=== PATIENT | male | born 1940 | race Caucasian/White ===

== ENCOUNTER → 2018-03-20 | Outpatient (CLI) | payer OTHER | LOC: FIMAGING 12:21 | PROVIDERS: ATTEND Orthopaedic Surgery | DX: Z01.818 Encounter for other preprocedural examination (principal); M16.12 Unilateral primary osteoarthritis, left hip ==

== ENCOUNTER 2018-04-01 07:52 | Inpatient (IN) | payer OTHER ==
--- NOTE | 2018-04-01 06:33 | PDIAF ---
- Diagnosis Diagnosis: left hip djd Code Status: Full Code - Medication Management Discharge Medications: Medications to Continue on Transfer Acetaminophen [Tylenol 325mg (*)] 325 mg PO Q6HRS PRN 03/19/18 [Last Taken Unknown] Calcium Carbonate [Oyster Shell Calcium 500 mg (*)] 500 mg PO DAILY 03/19/18 [ Last Taken Unknown] Ferrous Sulfate [Ferrous Sulf 325 MG (*)] 325 mg PO DAILY 03/19/18 [Last Taken Unknown] Ibuprofen [Motrin (*)] 200 mg PO DAILY 03/19/18 [Last Taken Unknown] Multivitamins [Multivitamin (*)] 1 each PO DAILY 03/19/18 [Last Taken Unknown] Omeprazole 20 mg PO DAILY18 03/19/18 [Last Taken Unknown] Discharge Medications: Refer to the Discharge Home Medication list for PRN reason. - Orders Services needed: Physical Therapy Diet Recommendation: no restrictions on diet Diet Texture: Regular Texture Diet Additional Instructions: TOTAL JOINT ARTHROPLASTY DISCHARGE INSTRUCTIONS 1. Your surgeon follows the [facility] protocol for reducing your risk of DVT (blood clots) following surgery. Medication will be ordered to prevent blood clots. A sudden increase in calf pain and/or swelling could indicate a blood clot in your leg. If this occurs, please call your surgeon or his/her assistant professor of criminal justice. An ultrasound of the leg may be necessary to diagnose a blood clot. If you have conditions that make you a higher risk for blood clots, your surgeon may use more aggressive ways to prevent them. Notify your surgeon if you think you are a high risk for blood clots. 2. Wear your white surgical stockings (NEEL hose) for 2 weeks. This decreases your swelling and may help prevent blood clots. It is ok to remove NEEL hose at night time to give your legs a break. 3. Swelling and bruising in the surgical leg is common. If you feel that it is excessive, please notify your surgeon. 4. Elevate your surgical leg with the ankle above the hip several times every day. Please keep the leg straight when you elevate by putting pillows under your foot. Do not put pillows under your knee. This will make being able to fully straighten more difficult. This is uncomfortable, but try to do it as much as possible. 5. For total knee replacements use compressive wrap on your knee for 3-5 days after surgery, then you can discontinue it. 6. Use a walker or crutches for 1-2 weeks. Progress your weight-bearing as tolerated. You may start to use a cane when you feel stable and safe. 7. You will receive physical therapy instructions in the hospital. Continue those exercises at home. There are additional exercises in the total joint booklet you were given before surgery. Outpatient physical therapy will begin 7- 10 days after surgery. Please schedule this in advance. 8. Use ice on your knee at least 3-5 times every day for 30 minutes. This helps reduce pain and swelling. Also use it at night before falling asleep. 9. Leave your surgical dressing in place for 2 weeks. Your dressing is water resistant, but not waterproof. Cover it with Saran Wrap or Sbsjz-i-Lamh before showering. You may shower as soon as you feel safe entering a shower. If you notice bleeding from your incision 2 or 3 days after surgery, please notify your surgeon. 10. Due to narcotics, decreased activity and altered diet, most patients experience constipation after surgery. Use jthn-xwe-[id number] stool softeners while you are on narcotics. 11. You may drive a car when you are comfortable bearing weight, have good muscular control of your leg and are off narcotics. This usually occurs 2-4 weeks after surgery, depending on which leg was operated on. 12. If there are questions not addressed here, please refer the [facility] book given for more information. If you still have questions, please contact your surgeon s office. 13. If you have a life-threatening emergency, please call 911 and go to the emergency room immediately. For non-life threatening emergencies, please call your physicians office for advice before going to the emergency room. - Follow Up Care Current Providers and Referrals: Solomon Ryan MD [Medical Doctor] - MEGAN QUINONEZ [Primary Care Provider] -
--- NOTE | 2018-04-01 06:33 | PDHPUP ---
History & Physical Update H&P update statement: This history and physical update is based on an assessment of the patient which was completed after admission or registration (within 24 hours), but prior to the surgery/procedure. H&P update: no change in patient's condition since H&P completed
[~2018-04-01 07:52] MED LIST: ROPIVACAINE 0.2% 80 MG, EPINEPHrine 0.2 MG, KETOROLAC TROMETHAMINE 30 MG, morphINE 10 M... IU ONE; TRANEXAMIC ACID 1,000 MG in NS 100 ML IV ONE
[2018-04-01] MEDS ORDERED: ceFAZolin 2 GM/DEXTROSE 100 ML IV ONE (08:04)
[2018-04-01] MEDS ORDERED: ACETAMINOPHEN 325 MG TAB PO ONE (08:04)
[2018-04-01] MEDS ORDERED: FAMOTIDINE 20 MG TAB PO ONE (08:04)
[2018-04-01] MEDS ORDERED: LR 1,000 ML IV ONE (08:05)
[2018-04-01] MEDS ORDERED: ceFAZolin 1 GM/5 ML SYR ONE (08:41)
[2018-04-01] MEDS ORDERED: MIDAZOLAM 2 MG/2 ML VIAL IVP ONE (09:28)
--- NOTE | 2018-04-01 09:29 | PDANEPAE ---
ANE History of Present Illness left hip pain, left total hip arthroplasty ANE Past Medical History - Cardiovascular History Hx Hypertension: No Hx Arrhythmias: No Hx Chest Pain: No Hx Coronary Artery / Peripheral Vascular Disease: No Hx CHF / Valvular Disease: No Hx Palpitations: No - Pulmonary History Hx COPD: No Hx Asthma/Reactive Airway Disease: No Hx Recent Upper Respiratory Infection: No Hx Oxygen in Use at Home: No Hx Sleep Apnea: No Sleep Apnea Screening Result - Last Documented: Negative - Neurologic History Hx Cerebrovascular Accident: No Hx Seizures: No Hx Dementia: No - Endocrine History Hx Diabetes: No - Renal History Hx Renal Disorders: No - Liver History Hx Hepatic Disorders: No - Neurological & Psychiatric Hx Hx Neurological and Psychiatric Disorders: No - Cancer History Hx Cancer: No - Congenital Disorder History 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 GERD - Other Health History Other Health History: osteoarthritis. mild low back pain, muscular - Chronic Pain History Chronic Pain: Yes (left hip in the last year) - Surgical History Prior Surgeries: hernia repair, age 12 ANE Review of Systems Review of Systems: - Exercise capacity METS (RN): 5 METS ANE Patient History - Allergies Allergies/Adverse Reactions: No Known Allergies Allergy (Verified 03/19/18 10:26) - Home Medications Home Medications: Acetaminophen [Tylenol 325mg (*)] 325 mg PO Q6HRS PRN 03/19/18 [Last Taken 03/31 22:00] Calcium Carbonate [Oyster Shell Calcium 500 mg (*)] 500 mg PO DAILY 03/19/18 [ Last Taken 03/25/18] Ferrous Sulfate [Ferrous Sulf 325 MG (*)] 325 mg PO DAILY 03/19/18 [Last Taken 04/01/18] Ibuprofen [Motrin (*)] 200 mg PO DAILY 03/19/18 [Last Taken 03/25/18] Multivitamins [Multivitamin (*)] 1 each PO DAILY 03/19/18 [Last Taken 03/25/18] Omeprazole 20 mg PO DAILY18 03/19/18 [Last Taken 03/31/18 18:30] - NPO status NPO Since - Liquids (Date): 04/01/18 NPO Since - Liquids (Time): 06:30 NPO Since - Solids (Date): 03/31/18 NPO Since - Solids (Time): 22:00 - Smoking Hx Smoking Status: Former smoker - Family Anes Hx Family Hx Anesthesia Complications: none ANE Labs/Vital Signs - Vital Signs Blood Pressure: 146/78 Heart Rate: 62 Respiratory Rate: 16 O2 Sat (%): 97 Height: 177.8 cm Weight: 61.235 kg ANE Physical Exam - Airway Neck exam: FROM Mallampati Score: Class 1 Mouth exam: normal dental/mouth exam - Pulmonary Pulmonary: no respiratory distress - Cardiovascular Cardiovascular: regular rate and rhythym - ASA Status ASA Status: II ANE Anesthesia Plan Anesthesia Plan: GA w LMA, spinal
[2018-04-01] MEDS ORDERED: fentaNYL 100 MCG/2 ML INJ ONE ×3 (09:34→11:32)
[2018-04-01] MEDS ORDERED: PHENYLEPHRINE HCL 100 MCG/ML SYR ONE (09:34)
[2018-04-01] MEDS ORDERED: LIDOCAINE 2% 100 MG/5 ML SYR ONE (09:34)
[2018-04-01] MEDS ORDERED: BUPIVACAINE/DEXTROSE 7.5MG/ML 2 ML SPINAL AMP SP ONE (09:34)
[2018-04-01] MEDS ORDERED: PROPOFOL 200 MG/20 ML VIAL ONE (09:35)
[2018-04-01] MEDS ORDERED: PROPOFOL/EMULSION 500 MG/50 ML BOTTLE IV ONE (09:38)
[2018-04-01] MEDS ORDERED: HYDROmorphONE/DILAUDID 2 MG/ML INJ IVP PRN (10:30)
[2018-04-01] MEDS ORDERED: LR 500 ML IV PRN (10:30)
[2018-04-01] MEDS ORDERED: MEPERIDINE 25 MG/0.5 ML AMP IVP PRN (10:30)
[2018-04-01] MEDS ORDERED: ONDANSETRON 4 MG/2 ML VIAL IVP PRN ×2 (10:30→11:00)
[2018-04-01] MEDS ORDERED: ACETAMINOPHEN 500 MG TAB PO PRN (10:30)
[2018-04-01] MEDS ORDERED: oxyCODONE IR 5 MG TAB PO PRN ×2 (10:30→11:00)
[2018-04-01] MEDS ORDERED: PROMETHAZINE HCL 25 MG/ML INJ IVP PRN ×2 (10:30→11:00)
[2018-04-01] MEDS ORDERED: NALOXONE HCL 0.4 MG/ML INJ IVP PRN (10:30)
[2018-04-01] MEDS ORDERED: LACTULOSE 20 GM/30 ML UDCUP PO PRN (11:00)
[2018-04-01] MEDS ORDERED: POLYETHYLENE GLYCOL 3350 17 GM PKT PO PRN (11:00)
[2018-04-01] MEDS ORDERED: LR 1,000 ML IV SCH (11:00)
[2018-04-01] MEDS ORDERED: ONDANSETRON DISINTEGRATING 4 MG TAB PO PRN (11:00)
[2018-04-01] MEDS ORDERED: diphenhydrAMINE 25 MG CAP PO PRN (11:00)
[2018-04-01] MEDS ORDERED: METOCLOPRAMIDE 10 MG/2 ML VIAL IVP PRN (11:00)
[2018-04-01] MEDS ORDERED: PROMETHAZINE HCL 25 MG SUPPR PR PRN (11:00)
[2018-04-01] MEDS ORDERED: MAGNESIUM HYDROXIDE 30 ML UDCUP PO PRN (11:00)
[2018-04-01] MEDS ORDERED: BISACODYL 10 MG SUPP PR PRN (11:00)
[2018-04-01] MEDS ORDERED: TEMAZEPAM 15 MG CAP PO PRN (11:00)
[2018-04-01] MEDS ORDERED: DIPHENOXYLATE/ATROPINE LOMOTIL 1 TAB PO PRN (11:00)
[2018-04-01] MEDS ORDERED: CYCLOBENZAPRINE 10 MG TAB PO PRN (11:00)
--- NOTE | 2018-04-01 11:00 | POSTOPPROG ---
Post Op Note Date of Operation: 04/01/18 Surgeon: Solomon Ryan [employer] Apprentice: tata Anesthesiologist: bridgette Anesthesia: Spinal Pre-op Diagnosis: left hip djd Post-op Diagnosis: same Indication: same Procedure: left unique Inf/Abcess present in the surg proc area at time of surgery?: No Depth: Deep Incisional (Fascial) EBL: 100-500 Drains: Hemovac
--- NOTE | 2018-04-01 11:12 | PDMN ---
Medical Necessity Medical necessity: [facility] IP only surgery; cpt [id number] L CHRISTINE
[2018-04-01] MEDS: fentaNYL 100 MCG/2 ML INJ IVP PRN ×2 (11:34→11:38)
[2018-04-01] MEDS ORDERED: MEPERIDINE 25 MG/0.5 ML AMP ONE (11:39)
[2018-04-01] MEDS ORDERED: HYDROmorphONE/DILAUDID 2 MG/ML INJ ONE (11:47)
[2018-04-01] MEDS: ACETAMINOPHEN 325 MG TAB PO SCH ×2 (13:37→17:55)
--- NOTE | 2018-04-01 13:44 | POSTANESTH ---
Post Anesthetic Evaluation Cardiovascular Status: Normal, Stable Respiratory Status: Normal, Stable Level of Consciousness/Mental Status: Can Participate in Eval Pain Control: Adequate, Prn Tx Ordered Nausea/Vomiting Control: Adequate, Prn Tx Ordered Complications Possibly Related to Anesthesia: None Noted (moving bilateral lower extrem, comfortable)
[2018-04-01] MEDS: TRANEXAMIC ACID 650 MG TAB PO SCH ×2 (14:26→21:27)
[2018-04-01] MEDS: traMADol 50 MG TAB PO PRN ×2 (14:32→21:36)
[2018-04-01] MEDS: ceFAZolin 2 GM/DEXTROSE 100 ML IV SCH (17:56)
[2018-04-01] MEDS ORDERED: PANTOPRAZOLE SODIUM 40 MG TAB PO SCH (18:00)
[2018-04-01] MEDS: SENNOSIDES/DOCUSATE SODIUM TAB PO SCH (21:26)
[2018-04-01] MEDS: ASPIRIN 325 MG TAB PO SCH (21:26)
[2018-04-01] MEDS: FAMOTIDINE 20 MG TAB PO SCH (21:26)
[2018-04-02] MEDS: ACETAMINOPHEN 325 MG TAB PO SCH ×2 (00:15→05:39)
[2018-04-02] MEDS: ceFAZolin 2 GM/DEXTROSE 100 ML IV SCH (02:52)
[2018-04-02] MEDS: TRANEXAMIC ACID 650 MG TAB PO SCH (05:39)
[2018-04-02] MEDS: traMADol 50 MG TAB PO PRN (05:40)
--- NOTE | 2018-04-02 06:49 | PDIAF ---
- Diagnosis Diagnosis: left hip djd Code Status: Full Code - Medication Management Discharge Medications: Medications to Continue on Transfer Acetaminophen [Tylenol 325mg (*)] 325 mg PO Q6HRS PRN 03/19/18 [Last Taken 03/31 22:00] Calcium Carbonate [Oyster Shell Calcium 500 mg (*)] 500 mg PO DAILY 03/19/18 [ Last Taken 03/25/18] Ferrous Sulfate [Ferrous Sulf 325 MG (*)] 325 mg PO DAILY 03/19/18 [Last Taken 04/01/18] Multivitamins [Multivitamin (*)] 1 each PO DAILY 03/19/18 [Last Taken 03/25/18] Omeprazole 20 mg PO DAILY18 03/19/18 [Last Taken 03/31/18 18:30] Aspirin [Aspirin 325 mg (*)] 325 mg PO DAILY #0 tab 04/02/18 [Last Taken Unknown ] oxyCODONE IR [Oxycodone Ir (*)] 5 - 10 mg PO Q3HRS PRN #40 tab 04/02/18 [Last Taken Unknown] traMADol [Ultram 50 mg (*)] 50 mg PO Q6HRS PRN #50 tab 04/02/18 [Last Taken Unknown] Discharge Medications: Refer to the Discharge Home Medication list for PRN reason. - Orders Services needed: Physical Therapy Diet Recommendation: no restrictions on diet Diet Texture: Regular Texture Diet Additional Instructions: TOTAL JOINT ARTHROPLASTY DISCHARGE INSTRUCTIONS 1. Your surgeon follows the [facility] protocol for reducing your risk of DVT (blood clots) following surgery. Medication will be ordered to prevent blood clots. A sudden increase in calf pain and/or swelling could indicate a blood clot in your leg. If this occurs, please call your surgeon or his/her educational program assistant. An ultrasound of the leg may be necessary to diagnose a blood clot. If you have conditions that make you a higher risk for blood clots, your surgeon may use more aggressive ways to prevent them. Notify your surgeon if you think you are a high risk for blood clots. 2. Wear your white surgical stockings (NEEL hose) for 2 weeks. This decreases your swelling and may help prevent blood clots. It is ok to remove NEEL hose at night time to give your legs a break. 3. Swelling and bruising in the surgical leg is common. If you feel that it is excessive, please notify your surgeon. 4. Elevate your surgical leg with the ankle above the hip several times every day. Please keep the leg straight when you elevate by putting pillows under your foot. Do not put pillows under your knee. This will make being able to fully straighten more difficult. This is uncomfortable, but try to do it as much as possible. 5. For total knee replacements use compressive wrap on your knee for 3-5 days after surgery, then you can discontinue it. 6. Use a walker or crutches for 1-2 weeks. Progress your weight-bearing as tolerated. You may start to use a cane when you feel stable and safe. 7. You will receive physical therapy instructions in the hospital. Continue those exercises at home. There are additional exercises in the total joint booklet you were given before surgery. Outpatient physical therapy will begin 7- 10 days after surgery. Please schedule this in advance. 8. Use ice on your knee at least 3-5 times every day for 30 minutes. This helps reduce pain and swelling. Also use it at night before falling asleep. 9. Leave your surgical dressing in place for 2 weeks. Your dressing is water resistant, but not waterproof. Cover it with Saran Wrap or Ajcoe-y-Wltk before showering. You may shower as soon as you feel safe entering a shower. If you notice bleeding from your incision 2 or 3 days after surgery, please notify your surgeon. 10. Due to narcotics, decreased activity and altered diet, most patients experience constipation after surgery. Use [id number] stool softeners while you are on narcotics. 11. You may drive a car when you are comfortable bearing weight, have good muscular control of your leg and are off narcotics. This usually occurs 2-4 weeks after surgery, depending on which leg was operated on. 12. If there are questions not addressed here, please refer the [facility] book given for more information. If you still have questions, please contact your surgeon s office. 13. If you have a life-threatening emergency, please call 911 and go to the emergency room immediately. For non-life threatening emergencies, please call your physicians office for advice before going to the emergency room. - Follow Up Care Current Providers and Referrals: Solomon Ryan MD [Medical Doctor] - MEGAN QUINONEZ [Primary Care Provider] -
--- NOTE | 2018-04-02 06:52 | SOAPPROG ---
SOAP Progress Note Assessment/Plan: Assessment: s/p unique Plan: dvt precautions dc home when cleared by pt f/u at two weeks 04/02/18 06:49 Subjective: no cp no sob sebastien po no n/v Objective: Vital Signs Temp Pulse Resp BP Pulse Ox 37.2 C 68 14 102/49 L 93 04/02/18 03:55 04/02/18 03:55 04/02/18 03:55 04/02/18 03:55 04/02/18 03:55 Laboratory Results 04/02/18 04:39 04/01/18 04/02/18 04/03/18 05:59 05:59 05:59 Intake Total 1410 Output Total 655 Balance 755 dressing intact intact pdf,ehl toes warm and pink neg homans mirza xrays anatomic, no fx or lucency ICD10 Worksheet Patient Problems: Problems Problem Status Onset Hip arthritis Acute - ICD10 Problem Qualifiers (1) Hip arthritis
[2018-04-02 08:23] VITALS: BP 105/57
[2018-04-02] MEDS: ASPIRIN 325 MG TAB PO SCH (08:55)
[2018-04-02] MEDS: FAMOTIDINE 20 MG TAB PO SCH (08:56)
[2018-04-02] MEDS: SENNOSIDES/DOCUSATE SODIUM TAB PO SCH (08:57)
[2018-04-02] MEDS ORDERED: CALCIUM CARBONATE 500 MG TAB PO SCH (09:00)
[2018-04-02] MEDS ORDERED: FERROUS SULFATE 325 MG TAB PO SCH (09:00)
[2018-04-02] MEDS ORDERED: MULTIVITAMINS 1 EACH TAB PO SCH (09:00)
--- NOTE | 2018-04-02 11:17 | ASMTLACE ---
LACE Length of stay for Answers: 2 days current admission Acuity / Level of Answers: Yes Care: Did the patient have an inpatient admission? Comorbidities - select Answers: Opioid dependence all that apply / Chronic pain Other Notes: GERD # of Emergency department Answers: 0 visits in the last 6 months Score: 10 Date Signed: 04/02/2018 11:17 AM Electronically Signed By:FERNANDO Estrada
--- NOTE | 2018-04-02 11:19 | ASMTCMCOM ---
CM Note CM Note Notes: Pt had planned OA of hip. PT rec home/outpatient. Pt does want [facility] which was pre-arranged by MD office. Orders and referral sent to [facility] in [employer]. Date Signed: 04/02/2018 11:18 AM Electronically Signed By:FERNANDO Estrada
--- NOTE | 2018-04-02 12:27 | ASDISCHSUM ---
Discharge Information Plan Status:Home with Home Health Medically Cleared to Leave: Discharge Date:04/02/2018 12:23 PM CM D/C Disposition: ADT D/C Disposition:Home Health Service Projected Discharge Date:04/02/2018 11:00 AM Transportation at D/C: Discharge Delay Reason: Follow-Up Date:04/02/2018 11:00 AM Discharge Slot: Final Diagnosis: Placement Information Referral Type:*Home Health Care Services Referral ID:[id number] Provider Name:[facility] [place] ([facility]) Address 1[address] Address 2: City:[place] Selection Factors: State:[place] Patient Contact Information Contact Name:BRANDEE Relationship: Address:[address] City:[place] Alternate Phone: [facility]/Zip Code:[place] [address] Email: Financial Information Financial Class:Medicare Primary Plan Desc:MEDICARE INPATIENT Primary Plan Number:[id number] Secondary Plan Desc:[facility] Secondary Plan Number:[id number] Assessment Information LACE LACE Length of stay for Answers: 2 days current admission Acuity / Level of Answers: Yes Care: Did the patient have an inpatient admission? Comorbidities - select Answers: Opioid dependence all that apply / Chronic pain Other Notes: GERD # of Emergency department Answers: 0 visits in the last 6 months Score: 10 Date Signed: 04/02/2018 11:17 AM Electronically Signed By:FERNANDO Estrada [facility] CM Progress Note CM Note CM Note Notes: Pt had planned OA of hip. PT rec home/outpatient. Pt does want [facility] which was pre-arranged by MD office. Orders and referral sent to [facility] in [employer]. Date Signed: 04/02/2018 11:18 AM Electronically Signed By:FERNANDO Estrada Intervention Information
--- NOTE | 2018-04-04 10:16 | GDS ---
ADMISSION DIAGNOSIS: Left hip degenerative joint disease. DISCHARGE DIAGNOSIS: Left hip degenerative joint disease. PROCEDURE: Left total hip arthroplasty. HISTORY OF PRESENT ILLNESS: The patient is a 77-year-old gentleman who presents today for elective l eft total hip replacement. HOSPITAL COURSE: The patient was admitted overnight after uncomplicated total hip arthroplasty. He tolerated the procedure well. At time of discharge, he is tolerating an oral diet. Pain was well co ntrolled on oral medicines. He is voiding without difficulty. Dressing is clean, dry, and intact. DISCHARGE ACTIVITIES: Weightbearing as tolerated. Anterior hip precautions. Daily dressing changes . No soaking or immersion. May shower with the bandage. FOLLOWUP: In 2 weeks. DISCHARGE MEDICATIONS: Ultram 50 mg 1-2 every 6 hours p.r.n. pain, oxycodone 5 mg 1-2 every 6 hours p.r.n. pain, aspirin 325 mg p.o. daily. /[id number]/MODL
--- NOTE | 2018-04-04 10:27 | GOP ---
DATE OF OPERATION: 04/01/2018 SURGEON: Solomon Ryan MD TOOL WORKER: Eladio Shafer, neurosurgical nurse practitioner who was medical necessity for the entirety of the case priyanka p. PREOPERATIVE DIAGNOSIS: Left hip degenerative joint disease. POSTOPERATIVE DIAGNOSIS: Left hip degenerative joint disease. PROCEDURE PERFORMED: Left total hip arthroplasty. FINDINGS: SPECIMENS: To Pathology, the femoral head. INDICATIONS: The patient is a 77-year-old gentleman with end-stage arthritis to his left hip. Clini jeff radiographic features are consistent with this. I reviewed the surgical risks, benefits, and alt ernatives, he wished to proceed. Written consent was signed and placed in patient's chart. DESCRIPTION OF PROCEDURE: The patient was identified in the preanesthesia area. The left hip clearl y demarcated as the operative site with indelible marker. He was given 2 g of Ancef intravenously in route to the operative suite. In the OR, a spinal anesthetic was placed, followed by sedation. He was positioned in the supine position. The pelvis and both lower extremities were then sterilely pre pped and draped in usual fashion. Appropriate time-out procedure was carried out. Attention was first turned to the right hemipelvis. A 2 cm incision was made over the iliac crest. 3 pins were then placed and the MAKOplasty reflector was affixed. Attention was then turned to the left hip. An anterior approach was made. Thick subcutaneous flaps were elevated. The skin and subcutaneous tissues were opened sharply. The fascia overlying the tens or fascia macy opened sharply. The tensor retracted laterally. The underlying vascular structures w ere identified, ligated, cauterized, and transected. The rectus elevated off the anterior capsule. Retractors were placed in an extracapsular position. A T was made in the capsule. The retractors we re positioned in intracapsular position. Acetabular reference check point was then placed. Bony wed ge was withdrawn from the femoral neck, followed by removal of the femoral head. The remnants of the acetabular labrum were sharply excised. The bony landmarks were entered into the computer in standard fashion. Using the MAKOplasty robot, a 54 mm reamer was placed in a single-stage reaming with anteversion of 20 degrees and opening angle o f 20 degrees to the appropriate depth. A 54 mm Tritanium II acetabular shell was then impacted, conf irmed to be fully seated, and a 0 degree X3 liner was then placed. The check point was removed. Attention was then turned to the femur, which was delivered through use of soft tissue retractors and extension of the table. The proximal canal was opened. Serial broaching was carried out to a size 5 stem. Trial reduction was carried out and ultimately a 36 mm +5 mm neck length Biolox head was jai ected. Intraoperative fluoroscopy was used to confirm appropriate positioning and leg lengths. With the leg in full extension, external rotation to 90 degrees, there was no evidence of instability. The trial stem was withdrawn. The final stem impacted confirmed to be fully seated. A 36 mm, +5 mm Biolox head was then placed. The hip was copiously irrigated and hip reduced, taken through stabilit y profile, was appropriate as before and leg lengths were equal. The wound was copiously irrigated. A 10-Brazilian drain was placed. The fascia was closed using #1 Vicryl. The subcutaneous tissue using 2-0 Monocryl and a Zip Line closure of the skin. Sterile dressing was applied. The patient was willy kened, extubated, taken to recovery in good stable condition. TOTAL TOURNIQUET TIME: None. COMPLICATIONS: None. IMPLANTS: Gallant Tritanium II acetabular shell size 54 mm, Trident X3 0-degree polyethylene insert 36 mm, Biolox Delta ceramic head, 36 mm, +5 mm neck length, and Accolade II 127 degree neck angle hip stem size 5. DISPOSITION: To the recovery room, then the floor. He is weightbearing anterior hip precautions. /[id number]/MODL
== END 2018-04-02 12:23 | disposition home health service (06) | DRG 470 ==
LOC: F3N 07:52
PROVIDERS: ADMIT Orthopaedic Surgery; ATTEND Orthopaedic Surgery
PROC: 8E0Y0CZ Robotic Assisted Procedure of Lower Extremity, Open Approach (ICD-10-PCS; principal; 2018-04-01 09:30)
PROC: 0SRB04Z Replacement of Left Hip Joint with Ceramic on Polyethylene Synthetic Substitute, Open Approach (ICD-10-PCS; principal; 2018-04-01 09:30)
DX: M16.12 Unilateral primary osteoarthritis, left hip (principal)
CPT/HCPCS: 97110-GP; 97116-GP; 97161-GP; 97165-GO; G8978-GP-CJ; G8979-GP-CI; G8987-GO-CI; G8988-GO-CI; G8989-GO-CI; J0171; J0690; J1170; J1885; J2001; J2175; J2250; J2270; J2370; J2704; J2795; J3010

== ENCOUNTER → 2018-05-14 | Outpatient (CLI) | payer OTHER | LOC: BMCIMAGING 09:17 | PROVIDERS: ATTEND Orthopaedic Surgery | DX: Z47.1 Aftercare following joint replacement surgery (principal); Z96.642 Presence of left artificial hip joint ==

== ENCOUNTER → 2018-06-24 | Outpatient (CLI) | payer OTHER | LOC: BMCIMAGING 09:11 | PROVIDERS: ATTEND Orthopaedic Surgery | DX: Z47.1 Aftercare following joint replacement surgery (principal); Z96.642 Presence of left artificial hip joint ==

== ENCOUNTER → 2018-09-22 | Outpatient (CLI) | payer OTHER | LOC: BMCIMAGING 10:45 | PROVIDERS: ATTEND Orthopaedic Surgery | DX: Z47.1 Aftercare following joint replacement surgery (principal); Z96.642 Presence of left artificial hip joint ==